=== PATIENT | male | born 1970 | race Caucasian/White ===

== ENCOUNTER 2022-12-13 18:29 | Emergency (ER) | payer OTHER, SELFPAY ==
[2022-12-13] VITALS (14 sets, daily range): BP systolic 150–165; BP diastolic 87–92; PULSE 66–75; RESP 15–25; TEMP 36.9–37.3; O2SAT 92–98; BMI 29.0
--- NOTE | 2022-12-13 19:05 | ECG_ITS ---
The 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
--- NOTE | 2022-12-13 19:07 | ED.SOB1 ---
Documented by User: FLETCHER Mota 12/13/22 20:54 HPI - SOB/Dyspnea General Chief Complaint: Shortness of Breath/Dyspnea Stated Complaint: DIFF BREATHING Time Seen by Provider: 12/13/22 18:41 Source: patient Mode of arrival: walk-in Limitations: no limitations Related Data Allergies Allergy/AdvReac Type Severity Reaction Status Date / Time No Known Drug Allergies Allergy Verified 12/13/22 18:41 PFSH PFS Social History Smoking status: Heavy tobacco smoker Exam Constitutional Vital Signs, click to edit/add: Last Vital Signs Temp 99.1 F 12/13/22 20:59 Pulse 70 12/13/22 20:59 Resp 16 12/13/22 20:59 BP 150/92 H 12/13/22 20:59 Pulse Ox 93 L 12/13/22 20:59 O2 Del Method Room Air 12/13/22 18:42 Course Vital Signs Vital signs: Vital Signs Blood Pressure 165/87 H 12/13/22 18:40 Temperature 99.1 F 12/13/22 20:59 Pulse Rate 70 12/13/22 20:59 Respiratory Rate 16 12/13/22 20:59 Blood Pressure 150/92 H 12/13/22 20:59 Pulse Oximetry 93 L 12/13/22 20:59 Oxygen Delivery Method Room Air 12/13/22 18:42 MDM - SOB/Dyspnea MDM Narrative Medical decision making narrative: patient medicated with aspirin as a precaution, given IV fluids and Solu-Medrol. He has no wheezing in the emergency department and maintains normal vital signs. Lab studies including d-dimer within normal limits, no acute ST elevation noted on EKG. Chest x-ray shows no evidence of acute cardiopulmonary changes. patient had no complaints of chest pain in the emergency department. He has a heart score of 3 for his clinical history, age and risk factor of smoking. He has no other coronary artery disease risk factors. He has an inhaler at home. Return to the Emergency Room if symptoms change or worsen. Medical Records Attestation: I reviewed the patient's medical records. Lab Data Attestation: I reviewed the patient's lab results. Labs: Lab Results 12/13/22 Range/Units 18:53 WBC 10.8 (4.0-11.0) 10^3/uL RBC 4.68 L (4.70-6.10) 10^6/uL Hgb 14.0 (14.0-18.0) g/dL Hct 42.0 (42.0-54.0) % MCV 89.7 (80.0-94.0) fL MCH 29.9 (25.9-34.0) pg MCHC 33.3 (29.9-35.2) g/dL RDW 12.7 (11.0-15.0) % Plt Count 221 (150-450) 10^3/uL MPV 9.8 (9.5-13.5) fL Neut % (Auto) 71.5 (43.0-75.0) % Lymph % (Auto) 17.4 L (20.5-60.0) % [place] % (Auto) 9.5 (1.7-12.0) % Eos % (Auto) 0.8 L (0.9-7.0) % Baso % (Auto) 0.3 (0.2-2.0) % Neut # (Auto) 7.7 H (1.4-6.5) 10^3/uL Lymph # (Auto) 1.9 (1.2-3.8) 10^3/uL [place] # (Auto) 1.0 H (0.3-0.8) 10^3/uL Eos # (Auto) 0.1 (0.0-0.7) 10^3/uL Baso # (Auto) 0.0 (0.0-0.1) 10^3/uL Abs Immat Gran (auto) 0.05 H (0.00-0.03) 10^3/uL Imm/Tot Granulo (auto) 0.5 (0.0-0.5) % PT 10.2 (9.0-11.6) sec INR 0.96 APTT 29.4 (22.3-36.2) sec D-Dimer 0.25 (<=0.59) mg/L FEU VBG pH 7.446 H (7.330-7.430) VBG pCO2 36.5 L (40.0-52.0) mmHg Sodium 138 (136-145) mmol/L Potassium 3.8 (3.5-5.1) mmol/L Chloride 103 (98-107) mmol/L Carbon Dioxide 23.8 (21.0-32.0) mmol/L Anion Gap 15.0 BUN 20.0 H (7.0-18.0) mg/dL Creatinine 1.24 (0.70-1.30) mg/dL Est GFR ( Amer) >60 (>=60) Est GFR (Non-Af Amer) >60 (>=60) BUN/Creatinine Ratio 16.1 Glucose 110 H (74-106) mg/dL Calcium 8.7 (8.5-10.1) mg/dL Total Bilirubin 0.3 (0.2-1.0) mg/dL AST 38 H (15-37) U/L ALT 50 (16-63) U/L Alkaline Phosphatase 61 (46-116) U/L Troponin I High Sens 12.5 (4.0-76.1) pg/mL NT-Pro-B Natriuret Pep 21.0 (<=900.0) pg/mL Total Protein 7.4 (6.4-8.2) g/dL Albumin 4.0 (3.4-5.0) g/dL Globulin 3.4 g/dL Albumin/Globulin Ratio 1.2 Imaging Data Chest x-ray: Attestation: I have reviewed the pertinent imaging results. Radiologist's impression: Procedure: XR chest 1V EXAM: XR chest 1V at 2030 hours HISTORY: shortness of breath COMPARISON: None. TECHNIQUE: AP upright portable chest x-ray FINDINGS: The heart is not enlarged and the vasculature is not distended. No acute infiltrate, effusion or pneumothorax is identified. The osseous structures are grossly intact. IMPRESSION: No acute infiltrate or evidence of cardiac decompensation. Direct comparison with a previous study would be helpful in determining the chronicity of these findings. Electronically authenticated by: EMMA DURAND Date: 12/13/2022 20:37 ECG Data Attestation: I personally reviewed and interpreted this ECG as follows: (normal sinus rhythm at a rate of sixty-six, incomplete right bundle-branch block with no acute ST elevation or ectopy. EKG reviewed by attending physician) ECG interpretation date: 12/13/22 ECG interpretation time: 20:51 Discharge Plan Discharge Chief Complaint: Shortness of Breath/Dyspnea Clinical Impression: Shortness of breath, Chest pain Patient Disposition: Home, Self-Care Time of Disposition Decision: 20:53 Condition: Good Instructions: Chest Pain (ED), Shortness of Breath (ED) Stand Alone Forms: Portal Instructions Referrals: Physician,Non-Staff, [Primary Care Provider] - 1 week Discharge Date/Time: 12/13/22 21:06 Documented by User: Nieves Ardon MD 12/14/22 07:20 HPI - SOB/Dyspnea General Chief Complaint: Shortness of Breath/Dyspnea Stated Complaint: DIFF BREATHING Time Seen by Provider: 12/13/22 18:41 Related Data Allergies Allergy/AdvReac Type Severity Reaction Status Date / Time No Known Drug Allergies Allergy Verified 12/13/22 18:41 PFSH PFSH Social History Smoking status: Heavy tobacco smoker Exam Constitutional Vital Signs, click to edit/add: Last Vital Signs Temp 99.1 F 12/13/22 20:59 Pulse 70 12/13/22 20:59 Resp 16 12/13/22 20:59 BP 150/92 H 12/13/22 20:59 Pulse Ox 93 L 12/13/22 20:59 O2 Del Method Room Air 12/13/22 18:42 Course Vital Signs Vital signs: Vital Signs Blood Pressure 165/87 H 12/13/22 18:40 Temperature 99.1 F 12/13/22 20:59 Pulse Rate 70 12/13/22 20:59 Respiratory Rate 16 12/13/22 20:59 Blood Pressure 150/92 H 12/13/22 20:59 Pulse Oximetry 93 L 12/13/22 20:59 Oxygen Delivery Method Room Air 12/13/22 18:42 MDM - SOB/Dyspnea MDM Narrative Medical decision making narrative: patient medicated with aspirin as a precaution, given IV fluids and Solu-Medrol. He has no wheezing in the emergency department and maintains normal vital signs. Lab studies including d-dimer within normal limits, no acute ST elevation noted on EKG. Chest x-ray shows no evidence of acute cardiopulmonary changes. patient had no complaints of chest pain in the emergency department. He has a heart score of 3 for his clinical history, age and risk factor of smoking. He has no other coronary artery disease risk factors. He has an inhaler at home. Return to the Emergency Room if symptoms change or worsen. Attending physician attestation I have reviewed the mid-level documentation, agree with the documentation, medical decision making and treatment plan as outlined by the mid-level provider. Lab Data Labs: Lab Results 12/13/22 Range/Units 18:53 WBC 10.8 (4.0-11.0) 10^3/uL RBC 4.68 L (4.70-6.10) 10^6/uL Hgb 14.0 (14.0-18.0) g/dL Hct 42.0 (42.0-54.0) % MCV 89.7 (80.0-94.0) fL MCH 29.9 (25.9-34.0) pg MCHC 33.3 (29.9-35.2) g/dL RDW 12.7 (11.0-15.0) % Plt Count 221 (150-450) 10^3/uL MPV 9.8 (9.5-13.5) fL Neut % (Auto) 71.5 (43.0-75.0) % Lymph % (Auto) 17.4 L (20.5-60.0) % [place] % (Auto) 9.5 (1.7-12.0) % Eos % (Auto) 0.8 L (0.9-7.0) % Baso % (Auto) 0.3 (0.2-2.0) % Neut # (Auto) 7.7 H (1.4-6.5) 10^3/uL Lymph # (Auto) 1.9 (1.2-3.8) 10^3/uL [place] # (Auto) 1.0 H (0.3-0.8) 10^3/uL Eos # (Auto) 0.1 (0.0-0.7) 10^3/uL Baso # (Auto) 0.0 (0.0-0.1) 10^3/uL Abs Immat Gran (auto) 0.05 H (0.00-0.03) 10^3/uL Imm/Tot Granulo (auto) 0.5 (0.0-0.5) % PT 10.2 (9.0-11.6) sec INR 0.96 APTT 29.4 (22.3-36.2) sec D-Dimer 0.25 (<=0.59) mg/L FEU VBG pH 7.446 H (7.330-7.430) VBG pCO2 36.5 L (40.0-52.0) mmHg Sodium 138 (136-145) mmol/L Potassium 3.8 (3.5-5.1) mmol/L Chloride 103 (98-107) mmol/L Carbon Dioxide 23.8 (21.0-32.0) mmol/L Anion Gap 15.0 BUN 20.0 H (7.0-18.0) mg/dL Creatinine 1.24 (0.70-1.30) mg/dL Est GFR ( Amer) >60 (>=60) Est GFR (Non-Af Amer) >60 (>=60) BUN/Creatinine Ratio 16.1 Glucose 110 H (74-106) mg/dL Calcium 8.7 (8.5-10.1) mg/dL Total Bilirubin 0.3 (0.2-1.0) mg/dL AST 38 H (15-37) U/L ALT 50 (16-63) U/L Alkaline Phosphatase 61 (46-116) U/L Troponin I High Sens 12.5 (4.0-76.1) pg/mL NT-Pro-B Natriuret Pep 21.0 (<=900.0) pg/mL Total Protein 7.4 (6.4-8.2) g/dL Albumin 4.0 (3.4-5.0) g/dL Globulin 3.4 g/dL Albumin/Globulin Ratio 1.2 Discharge Plan Discharge Chief Complaint: Shortness of Breath/Dyspnea Clinical Impression: Shortness of breath, Chest pain Patient Disposition: Home, Self-Care Time of Disposition Decision: 20:53 Condition: Good Instructions: Chest Pain (ED), Shortness of Breath (ED) Stand Alone Forms: Portal Instructions Referrals: Physician,Non-Staff, MD [Primary Care Provider] - 1 week Discharge Date/Time: 12/13/22 21:06
[2022-12-13] MEDS: ASPIRIN 81 MG TAB.CHEW 162 MG PO (19:21)
[2022-12-13] MEDS: METHYLPREDNISOLONE SOD SUCC PF 125 MG/2 ML VIAL IVP (19:21)
[2022-12-13 19:40] LABS: PCO2 VBG 36.5 mmHg (40.0-52.0); pH VBG 7.446 (7.330-7.430)
[2022-12-13 19:44] LABS: Basophils Percent Auto 0.3 % (0.2-2.0); Eosinophils Absolute Auto 0.1 10^3/uL (0.0-0.7); Eosinophils Percent Auto 0.8 % (0.9-7.0); Immature Granulocytes Abs Auto 0.05 10^3/uL (0.00-0.03); Immature Granulocytes Pct Auto 0.5 % (0.0-0.5); Lymphocytes Absolute Auto 1.9 10^3/uL (1.2-3.8); Lymphocytes Percent Auto 17.4 % (20.5-60.0); Mean Corpuscular HGB Conc 33.3 g/dL (29.9-35.2); Mean Corpuscular Hemoglobin 29.9 pg (25.9-34.0); Mean Corpuscular Volume 89.7 fL (80.0-94.0); Mean Platelet Volume 9.8 fL (9.5-13.5); Monocytes Percent Auto 9.5 % (1.7-12.0); Neutrophils Absolute Auto 7.7 10^3/uL (1.4-6.5); Neutrophils Percent Auto 71.5 % (43.0-75.0); Platelet Count 221 10^3/uL (150-450); Red Blood Count 4.68 10^6/uL (4.70-6.10); Red Cell Distribution Width 12.7 % (11.0-15.0); White Blood Count 10.8 10^3/uL (4.0-11.0)
[2022-12-13 19:57] LABS: D Dimer 0.25 mg/L FEU (<=0.59); INR 0.96; Partial Thromboplastin Time 29.4 sec (22.3-36.2); Prothrombin Time 10.2 sec (9.0-11.6)
[2022-12-13 20:06] LABS: Alanine Aminotransferase 50 U/L (16-63); Albumin Globulin Ratio 1.2; Alkaline Phosphatase 61 U/L (46-116); Aspartate Amino Transferase 38 U/L (15-37); BUN Creatinine Ratio 16.1; Bilirubin Total 0.3 mg/dL (0.2-1.0); Calcium 8.7 mg/dL (8.5-10.1); Carbon Dioxide 23.8 mmol/L (21.0-32.0); Chloride 103 mmol/L (98-107); Estimated GFR (African America >60 (>=60); Estimated GFR (Non-African Ame >60 (>=60); Globulin 3.4 g/dL; Glucose 110 mg/dL (74-106); Potassium 3.8 mmol/L (3.5-5.1); Sodium 138 mmol/L (136-145); Total Protein 7.4 g/dL (6.4-8.2); Troponin I High Sensitivity 12.5 pg/mL (4.0-76.1)
--- NOTE | 2022-12-13 20:07 | XR_ITS ---
The [address] [address] Patient Name: ELISHA RODRIGUEZ MRN: [id number] date: 1970 Sex: M Assigned Patient Location: ER Current Patient Location: ER Accession/Order Number: [id number] Exam Date: 12/13/2022 20:15 Report Date: 12/13/2022 20:37 At the request of: KHADIJAH DAHL Procedure: XR chest 1V EXAM: XR chest 1V at 2030 hours HISTORY: shortness of breath COMPARISON: None. TECHNIQUE: AP upright portable chest x-ray FINDINGS: The heart is not enlarged and the vasculature is not distended. No acute infiltrate, effusion or pneumothorax is identified. The osseous structures are grossly intact. XR/XR chest 1V IMPRESSION: No acute infiltrate or evidence of cardiac decompensation. Direct comparison with a previous study would be helpful in determining the chronicity of these findings. Electronically authenticated by: EMMA DURAND Date: 12/13/2022 20:37
== END 2022-12-13 21:06 | disposition home or self-care (01) ==
PROVIDERS: Physician Assistant; Emergency Provider Emergency Medicine
DX: R06.02 Shortness of breath (principal); R07.9 Chest pain, unspecified; F17.210 Nicotine dependence, cigarettes, uncomplicated
CPT/HCPCS: 36415; 71045; 80053; 82800; 83880; 84484; 85025; 85378; 85610; 85730; 93005; 96374; 99285; J2930

== ENCOUNTER 2023-11-04 20:18 | Emergency (ER) | payer OTHER, SELFPAY ==
[2023-11-04] VITALS (24 sets, daily range): BP systolic 137–182; BP diastolic 71–94; PULSE 67–85; TEMP 37; O2SAT 91–97; BMI 31.8
--- NOTE | 2023-11-04 20:22 | ECG_ITS ---
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
--- NOTE | 2023-11-04 20:23 | CT_ITS ---
The [address] [address] Patient Name: ELISHA RODRIGUEZ MRN: [id number] date: 1970 Sex: M Assigned Patient Location: ER Current Patient Location: ER Accession/Order Number: [id number] Exam Date: 11/04/2023 20:45 Report Date: 11/04/2023 22:02 At the request of: JUAN PAULSON Procedure: CT head/brain wo con EXAMINATION: CT head/brain wo con, 11/04/2023 8:45 PM EDT HISTORY: Altered mental status COMPARISON: None. TECHNIQUE: CT scan of the head was performed without IV contrast. CT dose reduction technique was used, including Automated Exposure Control. FINDINGS: BRAIN PARENCHYMA/CSF SPACES: Ventricles are normal in size for age. There is no hemorrhage, mass effect or midline shift. There are no other significant findings. PARANASAL SINUSES: Mild bilateral ethmoid and frontal sinus disease. SKULL BASE AND CALVARIUM: Normal. EXTRACRANIAL SOFT TISSUES: Normal. CT/CT head/brain wo con IMPRESSION: 1. No acute intracranial abnormality. 2. Sinus disease as described. Electronically authenticated by: JUNE SANTIAGO Date: 11/04/2023 22:02
--- NOTE | 2023-11-04 20:23 | XR_ITS ---
The [address] [address] Patient Name: ELISHA RODRIGUEZ MRN: [id number] date: 1970 Sex: M Assigned Patient Location: ER Current Patient Location: ER Accession/Order Number: [id number] Exam Date: 11/04/2023 20:45 Report Date: 11/04/2023 22:46 At the request of: JUAN PAULSON Procedure: XR chest 1V EXAM: XR chest 1V HISTORY: Altered mental status COMPARISON: 12/23/2022 TECHNIQUE: Frontal view of the chest. FINDINGS: Blunting of the left costophrenic angle suggesting a small effusion. No focal consolidations. Cardiomediastinal silhouette is unremarkable. No acute osseous abnormality. XR/XR chest 1V IMPRESSION: Blunting of the left costophrenic angle suggesting a small effusion. Electronically authenticated by: JUNE SANTIAGO Date: 11/04/2023 22:46
--- NOTE | 2023-11-04 20:28 | ED_ITS ---
HPI HPI - General Adult General Chief complaint: Chest Pain Stated complaint: Chest Pain Time Seen by Provider: 11/04/23 20:22 Mode of arrival: ambulance History of Present Illness HPI narrative: 53-year-old male presents for altered mental status. He admits to drinking 7 or 8 beers today. He was found semiunresponsive in his shed [place] his property. It was quite hot out side today and it was hot inside the shed. Paramedics started an IV and transported him here. There is no evidence of any trauma. He is unable to provide us any good history upon arrival. Related Data Allergies Allergy/AdvReac Type Severity Reaction Status Date / Time No Known Drug Allergies Allergy Verified 12/13/22 18:41 Opioid HPI Opioid Management Most Recent Opioid Data: Ur Phencyclidine Scrn Negative (NEGATIVE) 11/04/23 20:45 Review of Systems ROS Narrative Not obtainable, altered mental status PFSH PFSH Social History Smoking status: Heavy tobacco smoker Exam Narrative Exam Narrative: Nurses note and vital signs reviewed and patient is not hypoxic. General: The patient appears is in no respiratory distress. He is looking around the room. He is nonverbal. Skin: Warm, dry, no pallor noted. There is no rash noted. Head: Normocephalic, atraumatic Eye: Normal conjunctiva, no drainage, EOMI. PERRL Ears, Nose, Mouth, and Throat: oral mucosa is slightly dry. Nares patent. Cardiovascular: Regular Rate and Rhythm Respiratory: Patient is in no distress, no accessory muscle use, lungs are clear to auscultation, no wheezing, rales or rhonchi Back: non-tender GI: Soft and nontender Musculoskeletal: No deformity or tenderness to his extremities Neurological: Nonverbal. Follows simple commands Psychiatric: Not uncooperative Constitutional Vital Signs, click to edit/add: Last Vital Signs Temp 98.6 F 11/04/23 20:21 Pulse 67 11/05/23 00:00 Resp 16 11/05/23 00:00 BP 134/74 11/05/23 00:00 Pulse Ox 96 11/05/23 00:00 O2 Del Method Room Air 11/04/23 20:21 Course Vital Signs Vital signs: Vital Signs Temperature 98.6 F 11/04/23 20:21 Pulse Rate 85 11/04/23 20:21 Respiratory Rate 14 11/04/23 20:21 Blood Pressure 182/94 H 11/04/23 20:21 Pulse Oximetry 91 L 11/04/23 20:21 Oxygen Delivery Method Room Air 11/04/23 20:21 Temperature 98.6 F 11/04/23 20:21 Pulse Rate 67 11/05/23 00:00 Respiratory Rate 16 11/05/23 00:00 Blood Pressure 134/74 11/05/23 00:00 Pulse Oximetry 96 11/05/23 00:00 Oxygen Delivery Method Room Air 11/04/23 20:21 Medical Decision Making MDM Narrative Medical decision making narrative: His workup is negative including CTA chest and CT brain. Alcohol level was 65. Blood work is normal including 2 sets of troponin. He is feeling improved and is able to be discharged home, ambulatory and his is taking him home. Findings were discussed with the patient and his . Heart score is 2. Differential Diagnosis Differential Diagnosis: Myocardial infarction, PE, pneumothorax, rib fracture, brain bleed Lab Data Lab results reviewed: Yes I reviewed the patient's lab results Labs: Lab Results 11/04/23 11/04/23 11/04/23 Range/Units 20:30 20:45 22:32 WBC 8.6 (4.0-11.0) 10^3/uL RBC 4.51 L (4.70-6.10) 10^6/uL Hgb 13.9 L (14.0-18.0) g/dL Hct 41.3 L (42.0-54.0) % MCV 91.6 (80.0-94.0) fL MCH 30.8 (25.9-34.0) pg MCHC 33.7 (29.9-35.2) g/dL RDW 13.1 (11.0-15.0) % Plt Count 199 (150-450) 10^3/uL MPV 10.0 (9.5-13.5) fL Neut % (Auto) 56.3 (43.0-75.0) % Lymph % (Auto) 30.4 (20.5-60.0) % [place] % (Auto) 9.5 (1.7-12.0) % Eos % (Auto) 3.1 (0.9-7.0) % Baso % (Auto) 0.5 (0.2-2.0) % Neut # (Auto) 4.9 (1.4-6.5) 10^3/uL Lymph # (Auto) 2.6 (1.2-3.8) 10^3/uL [place] # (Auto) 0.8 (0.3-0.8) 10^3/uL Eos # (Auto) 0.3 (0.0-0.7) 10^3/uL Baso # (Auto) 0.0 (0.0-0.1) 10^3/uL Abs Immat Gran (auto) 0.02 (0.00-0.03) 10^3/uL Imm/Tot Granulo (auto) 0.2 (0.0-0.5) % Sodium 137 (136-145) mmol/L Potassium 3.3 L (3.5-5.1) mmol/L Chloride 102 (98-107) mmol/L Carbon Dioxide 23.8 (21.0-32.0) mmol/L Anion Gap 14.5 BUN 9.0 (7.0-18.0) mg/dL Creatinine 1.05 (0.70-1.30) mg/dL Est GFR ( Amer) >60 (>=60) Est GFR (Non-Af Amer) >60 (>=60) BUN/Creatinine Ratio 8.6 Glucose 82 (74-106) mg/dL Calcium 8.6 (8.5-10.1) mg/dL Total Bilirubin 0.4 (0.2-1.0) mg/dL Direct Bilirubin 0.1 (0.0-0.2) mg/dL AST 40 H (15-37) U/L ALT 75 H (16-63) U/L Alkaline Phosphatase 57 (46-116) U/L Troponin I High Sens 12.1 14.0 (4.0-76.1) pg/mL Total Protein 7.1 (6.4-8.2) g/dL Albumin 3.8 (3.4-5.0) g/dL Globulin 3.3 g/dL Albumin/Globulin Ratio 1.2 Urine Color Lt. yellow (YELLOW) Urine Clarity Clear (CLEAR) Urine pH 6.0 (5.0-9.0) Ur Specific [place] 1.010 (1.005-1.025) Urine Protein Negative (NEG/TRACE) mg/dL Urine Glucose (UA) Negative (NEGATIVE) mg/dL Urine Ketones Negative (NEGATIVE) mg/dL Urine Occult Blood Moderate A (NEGATIVE) Urine Nitrite Negative (NEGATIVE) Urine Bilirubin Negative (NEGATIVE) Urine Urobilinogen 0.2 (0.2-1.0) EU/dL Ur Leukocyte Esterase Negative (NEGATIVE) Urine RBC 0-2 (0-2) #/HPF Urine WBC 0-2 A (NONE SEEN) #/HPF Ur Squamous Epith Cells None seen (NONE/RARE) #/LPF Urine Crystals None seen (None Seen) #/HPF Amorphous Sediment Few Urine Bacteria None seen (NONE SEEN) #/HPF Urine Casts None seen (NONE SEEN) #/LPF Urine Mucus Trace A (NONE SEEN) Ur Culture Indicated? No Urine Opiates Screen Negative (NEGATIVE) Ur Buprenorphine Scrn Negative (NEGATIVE) Ur Oxycodone Screen Negative (NEGATIVE) Urine Methadone Screen Negative (NEGATIVE) Ur Barbiturates Screen Negative (NEGATIVE) U Tricyclic Antidepress Negative (NEGATIVE) Ur Phencyclidine Scrn Negative (NEGATIVE) Ur Amphetamines Screen Negative (NEGATIVE) U Methamphetamines Scrn Negative (NEGATIVE) U Benzodiazepines Scrn Negative (NEGATIVE) Urine Cocaine Screen Negative (NEGATIVE) U Cannabinoids Screen Negative (NEGATIVE) Ethanol Quant 65 mg/dL Imaging Data CT scan - head: Radiologist's impression: ITS Impressions Chest X-Ray 11/04/23 20:23 IMPRESSION: Blunting of the left costophrenic angle suggesting a small effusion. Electronically authenticated by: JUNE SANTIAGO Date: 11/04/2023 22:[address] 11/04/23 20:23 IMPRESSION: 1. No acute intracranial abnormality. 2. Sinus disease as described. Electronically authenticated by: JUNE SANTIAGO Date: 11/04/2023 22:02 Chest CTA 11/04/23 22:37 IMPRESSION: 1. No evidence of pulmonary embolism. 2. Bibasilar atelectasis. Pneumonia is felt unlikely. 3. Upper esophageal wall thickening. Please correlate for esophagitis. Electronically authenticated by: Donna PAGE Date: 11/05/2023 00:18 ECG Data Attestation: I personally reviewed and interpreted this ECG as follows: (EKG on my interpretation shows normal sinus rhythm with a rate of 84 and a right bundle branch block. No acute change.) Discharge Plan Discharge Stand Alone Forms: Portal Instructions Chief Complaint: Chest Pain Clinical Impression: Generalized weakness, Chest pain Patient Disposition: Home, Self-Care Time of Disposition Decision: 01:06 Condition: Good Mode of Transportation: Private Vehicle Print Language: Montene[place]in Instructions: Chest Pain (ED), Weakness (ED) Referrals: Physician,Non-Staff, MD [Primary Care Provider] - 1 week
[2023-11-04 20:43] LABS: Basophils Percent Auto 0.5 % (0.2-2.0); Eosinophils Absolute Auto 0.3 10^3/uL (0.0-0.7); Eosinophils Percent Auto 3.1 % (0.9-7.0); Hematocrit 41.3 % (42.0-54.0); Hemoglobin 13.9 g/dL (14.0-18.0); Immature Granulocytes Abs Auto 0.02 10^3/uL (0.00-0.03); Immature Granulocytes Pct Auto 0.2 % (0.0-0.5); Lymphocytes Absolute Auto 2.6 10^3/uL (1.2-3.8); Lymphocytes Percent Auto 30.4 % (20.5-60.0); Mean Corpuscular HGB Conc 33.7 g/dL (29.9-35.2); Mean Corpuscular Hemoglobin 30.8 pg (25.9-34.0); Mean Corpuscular Volume 91.6 fL (80.0-94.0); Monocytes Absolute Auto 0.8 10^3/uL (0.3-0.8); Monocytes Percent Auto 9.5 % (1.7-12.0); Neutrophils Absolute Auto 4.9 10^3/uL (1.4-6.5); Neutrophils Percent Auto 56.3 % (43.0-75.0); Platelet Count 199 10^3/uL (150-450); Red Blood Count 4.51 10^6/uL (4.70-6.10); Red Cell Distribution Width 13.1 % (11.0-15.0); White Blood Count 8.6 10^3/uL (4.0-11.0)
[2023-11-04 20:52] LABS: Bilirubin Urine NEGATIVE (NEGATIVE); Blood Urine MODERATE (NEGATIVE); Clarity Urine CLEAR (CLEAR); Color Urine LT. YELLOW (YELLOW); Glucose Urine UA NEGATIVE (NEGATIVE); Ketones Urine NEGATIVE (NEGATIVE); Leukocyte Esterase Urine NEGATIVE (NEGATIVE); Nitrite Urine NEGATIVE (NEGATIVE); Protein Urine NEGATIVE (NEG/TRACE); Urobilinogen Urine 0.2 EU/dL (0.2-1.0)
[2023-11-04 20:55] LABS: Anion Gap 14.5; BUN Creatinine Ratio 8.6; Calcium 8.6 mg/dL (8.5-10.1); Carbon Dioxide 23.8 mmol/L (21.0-32.0); Chloride 102 mmol/L (98-107); Estimated GFR (African America >60 (>=60); Estimated GFR (Non-African Ame >60 (>=60); Glucose 82 mg/dL (74-106); Potassium 3.3 mmol/L (3.5-5.1); Sodium 137 mmol/L (136-145)
[2023-11-04 20:59] LABS: RBC Urine 0-2 #/HPF (0-2); WBC Urine 0-2 #/HPF (NONE SEEN)
[2023-11-04 21:00] LABS: Alanine Aminotransferase 75 U/L (16-63); Albumin Globulin Ratio 1.2; Albumin Level 3.8 g/dL (3.4-5.0); Alkaline Phosphatase 57 U/L (46-116); Aspartate Amino Transferase 40 U/L (15-37); Bilirubin Direct 0.1 mg/dL (0.0-0.2); Bilirubin Total 0.4 mg/dL (0.2-1.0); Ethanol 65 mg/dL; Globulin 3.3 g/dL; Total Protein 7.1 g/dL (6.4-8.2)
[2023-11-04 21:00] LABS: Amorphous Sediment Urine FEW; Bacteria Urine NONE SEEN #/HPF (NONE SEEN); Cast Seen? NONE SEEN #/LPF (NONE SEEN); Crystals Seen? None Seen #/HPF (None Seen); Mucus Urine TRACE (NONE SEEN); Squamous Epithelial Cell Urine NONE SEEN #/LPF (NONE/RARE); Urine Culture Indicated NO
[2023-11-04 21:06] LABS: Amphetamine Screen Urine NEGATIVE (NEGATIVE); Benzodiazepines Screen Urine NEGATIVE (NEGATIVE); Cannabinoid Screen Urine NEGATIVE (NEGATIVE); Cocaine Screen Urine NEGATIVE (NEGATIVE); Methamphetamines Screen Urine NEGATIVE (NEGATIVE); Opiate Screen Urine NEGATIVE (NEGATIVE); Phencyclidine Screen Urine NEGATIVE (NEGATIVE)
[2023-11-04 21:07] LABS: Barbiturates Screen Urine NEGATIVE (NEGATIVE); Buprenorphine Screen Urine NEGATIVE (NEGATIVE); Methadone Screen Urine NEGATIVE (NEGATIVE); Oxycodone Screen Urine NEGATIVE (NEGATIVE); Tricyclic Antidepressant Urine NEGATIVE (NEGATIVE)
[2023-11-04 21:09] LABS: Troponin I High Sensitivity 12.1 pg/mL (4.0-76.1)
[2023-11-04] MEDS: 0.9 % SODIUM CHLORIDE 1,000 ML 1000 ML IV (21:39)
--- NOTE | 2023-11-04 22:37 | CT_ITS ---
The [address] [address] Patient Name: ELISHA RODRIGUEZ MRN: [id number] date: 1970 Sex: M Assigned Patient Location: ER Current Patient Location: Accession/Order Number: [id number] Exam Date: 11/04/2023 23:00 Report Date: 11/05/2023 00:18 At the request of: JUAN PAULSON Procedure: CT angio chest EXAM: CT angio chest HISTORY: chest pain COMPARISON: None. TECHNIQUE: Axial CT images through the chest were obtained after the intravenous administration of contrast. Coronal and sagittal reformats were obtained. Dose reduction techniques were achieved by using automated exposure control and/or adjustment of mA and/or kV according to patient size and/or use of iterative reconstruction technique. FINDINGS: The study is technically adequate with a good contrast bolus to the pulmonary arteries. There are no filling defects or vascular cutoffs to indicate a pulmonary embolus. The pulmonary arteries are normal in size. There is bibasilar atelectasis. There is a calcified granuloma in the left lower lobe. The central airways are patent. No pleural effusion or pneumothorax is seen. The thoracic aorta is normal in course and caliber without evidence of an aneurysm. The cardiac chambers appear normal in size. There is no pericardial effusion. There is no mediastinal, hilar, or axillary lymphadenopathy by CT size criteria. There is upper esophageal wall thickening. Images through the upper abdomen reveal no significant abnormalities. Hepatic and splenic calcifications are suggestive of prior granulomatous disease. No suspicious or aggressive bone lesions are seen. No acute fracture is seen. CT/CT angio chest IMPRESSION: 1. No evidence of pulmonary embolism. 2. Bibasilar atelectasis. Pneumonia is felt unlikely. 3. Upper esophageal wall thickening. Please correlate for esophagitis. Electronically authenticated by: Donna PAGE Date: 11/05/2023 00:18
[2023-11-05] VITALS: BP 134/74; PULSE 67; O2SAT 96
[2023-11-05 01:18] VITALS: BP 134/81; PULSE 63; O2SAT 99
== END 2023-11-05 01:20 | disposition home or self-care (01) ==
PROVIDERS: Emergency Provider Emergency Medicine
DX: R07.9 Chest pain, unspecified (principal); R53.1 Weakness; F17.210 Nicotine dependence, cigarettes, uncomplicated
CPT/HCPCS: 36415; 70450; 71045; 71275; 80048; 80076; 80307; 80320; 81001; 84484; 85025; 93005; 99285; Q9967